=== PATIENT | male | born 1960 | race Caucasian/White ===

== ENCOUNTER 2019-07-31 12:55 | Emergency (ER) | payer BC ==
[2019-07-31] MEDS ORDERED: NA CHLORIDE 0.9% 1,000 ML ONE (13:49)
[2019-07-31 15:06] LABS: Absolute Lymphocytes (CBC) 1.3 K/uL (0.7-4.9); Basophils % 0.4 % (0-1.3); Hematocrit 52.2 % (39.6-49.0); Lymphocytes % 22.9 % (15.3-44.8); MPV 8.4 fL (7.6-11.3)
[2019-07-31 15:21] LABS: ALT/SGPT 27 U/L (12-78); AST/SGOT 14 U/L (15-37); Albumin 3.8 g/dL (3.4-5.0); Alkaline Phosphatase 109 U/L (45-117); BUN Blood Urea Nitrogen 18 mg/dL (7-18); Bicarbonate 29 mmol/L (21-32); Bilirubin Direct 0.2 mg/dL (0-0.2); Bilirubin Total 0.8 mg/dL (0.2-1.0); Glucose Level 96 mg/dL (74-106); Lipase 54 U/L (73-393); Potassium 4.3 mmol/L (3.5-5.1); Protein, Total 7.3 g/dL (6.4-8.2); Sodium Level 137 mmol/L (136-145)
--- NOTE | 2019-07-31 16:09 | RAD REPORT ---
EXAM DESCRIPTION: CT - Abdomen Pelvis W Contrast - 07/31/2019 3:56 pm CLINICAL HISTORY: lower abdomen pain COMPARISON: None. TECHNIQUE: Biphasic, helical CT imaging of the abdomen and pelvis was performed following 100 ml non -ionic IV contrast. No oral contrast administered. All CT scans are performed using dose optimization technique as appropriate and may include automated exposure control or mA/KV adjustment according to patient size. FINDINGS: No suspicious findings in the lung bases. The liver, spleen, and pancreas show no suspicious findings. Cholecystectomy clips are present. No bi liary tree dilatation. Symmetric renal function is seen with no hydronephrosis or suspicious renal mass. No pyelonephritis o r acute parenchymal process. No bladder abnormalities. Small renal cysts are present. No adrenal abno rmality seen. No gastric dilatation or gastric wall thickening. No dilated large or small bowel. Appendix is normal . Sigmoid colon anastomotic site shows no acute finding. Scattered diverticulosis without diverticuli tis. No free air, free fluid or inflammatory stranding. Fat filled left inguinal hernia is present. No congestion or edema of the herniated fat. No acute bone finding. No acute vascular finding suspec remigio. There is extensive postsurgical change near the thoracolumbar junction. IMPRESSION: Contrast enhanced CT abdomen and pelvis showing no acute finding. Nonacute findings detailed in the body of the report.
--- NOTE | 2019-07-31 16:39 | ER ---
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 hb Hx of diverticulitis. Transition of care: patient was not received from another setting of care. Onset of symptoms was July 31, 2019. Risk Assessment: Do you want to hurt yourself or someone else? Patient reports no desire to harm self or others. Initial Sepsis Screen: Does the patient meet any 2 criteria? No. Patient's initial sepsis screen is negative. Does the patient have a suspected source of infection? No. Patient's initial sepsis screen is negative. Care prior to arrival: None. 13:02 Method Of Arrival: Ambulatory hb 13:02 Acuity: JOSE ANTONIO 3 hb Historical: - Allergies: 13:03 No Known Allergies; hb - Home Meds: 13:03 Adderall XR Oral [Active]; hb - PMHx: 13:03 Diverticulitis; hb - PSHx: 13:04 colon resection; back; hb - Immunization history:: Adult Immunizations up to date. - Social history:: Smoking status: Patient/guardian denies using tobacco. - Ebola Screening: : No symptoms or risks identified at this time. Screenin:00 Abuse screen: Denies threats or abuse. Denies injuries from another. Nutritional jl7 screening: No deficits noted. Tuberculosis screening: No symptoms or risk factors identified. Fall Risk IV access (20 points). Total Lucio Fall Scale indicates No Risk (0-24 pts). Assessment: 13:30 General: Appears in no apparent distress. uncomfortable, Behavior is calm, cooperative, jl7 appropriate for age. Pain: Denies pain. Neuro: Level of Consciousness is awake, alert, obeys commands, Oriented to person, place, time, situation. Cardiovascular: Patient's skin is warm and dry. Respiratory: Airway is patent Respiratory effort is even, unlabored, Respiratory pattern is regular, symmetrical. GI: Bowel sounds present X 4 quads. Abd is soft X 4 quads Abdomen is tender to palpation in right upper quadrant Reports rectal bleeding. : No signs and/or symptoms were reported regarding the genitourinary system. EENT: No signs and/or symptoms were reported regarding the EENT system. Derm: Skin is pink, warm \\T\\ dry. 14:30 Reassessment: Pt states "I know what it is and I really don't want a CT. I normally jl7 just call my doctor and he'll call my prescriptions in. Can y' all just do that for me?" Explained to pt that we have to verify what's going on with test, especially with having rectal bleeding. Pt verbalized understanding. 15:30 Reassessment: Patient appears in no apparent distress at this time. No changes from jl7 previously documented assessment. Patient and/or family updated on plan of care and expected duration. Pain level reassessed. Patient is alert, oriented x 3, equal unlabored respirations, skin warm/dry/pink. 16:30 Reassessment: Patient appears in no apparent distress at this time. Patient and/or jl7 family updated on plan of care and expected duration. Pain level reassessed. Patient is alert, oriented x 3, equal unlabored respirations, skin warm/dry/pink. 17:35 Reassessment: Pt was going to leave AMA after antibiotics but once his IV was dc'd and jl7 he was about to leave he had a bloody BM and decided he would rather stay for observation. ERP notified. 18:00 Reassessment: Pt reporting nausea, see MAR for orders. jl7 19:15 Reassessment: Patient appears in no apparent distress at this time. Patient and/or cc3 family updated on plan of care and expected duration. Pain level reassessed. Patient is alert, oriented x 3, equal unlabored respirations, skin warm/dry/pink. Received this male patient from morning shift AFSANEH Hill as a case of abdominal pain with IV cannula gauge 20 at the left ACV with ongoing IVF of NS at 100 mL/hr infusing well. Patient denies pain at this time. Patient states feeling better. Patient states symptoms have improved. General: Appears in no apparent distress. comfortable, Behavior is calm, cooperative, appropriate for age. Pain: Denies pain. Neuro: Level of Consciousness is awake, alert, obeys commands, Oriented to person, place, time, situation, Appropriate for age. Cardiovascular: Denies chest pain, Capillary refill < 3 seconds Patient's skin is warm and dry. Respiratory: Airway is patent Respiratory effort is even, unlabored, Respiratory pattern is regular, symmetrical. GI: Abdomen is round obese, Bowel sounds present X 4 quads. Abd is soft Abdomen is tender to palpation in right upper quadrant. : No signs and/or symptoms were reported regarding the genitourinary system. EENT: No signs and/or symptoms were reported regarding the EENT system. Derm: Skin is intact, is healthy with good turgor, Skin is pink, warm \\T\\ dry. normal. Musculoskeletal: Circulation, motion, and sensation intact. Range of motion: intact in all extremities. 19:25 Reassessment: Patient appears in no apparent distress at this time. Patient and/or cc3 family updated on plan of care and expected duration. Pain level reassessed. Patient is alert, oriented x 3, equal unlabored respirations, skin warm/dry/pink. PA Page discharged the patient home and said no need for the type and screen to be done. IV cannula removed and patient left ER vitally stable and ambulatory. No valuables left in the patient's room. Patient denies pain at this time. Patient states feeling better. Patient states symptoms have improved. Vital Signs: 13:04 BP 169 / 92; Pulse 88; Resp 16; Temp 97.5; Pulse Ox 100% on R/A; Weight 117.93 kg; hb Height 5 ft. 6 in. (167.64 cm); Pain 2/10; 16:11 BP 139 / 81; Pulse 80; Resp 16; Pulse Ox 97% ; jl7 17:00 BP 142 / 89; Pulse 81; Resp 16 S; Pulse Ox 95% on R/A; jl7 18:29 BP 142 / 88; Pulse 83; Resp 16 S; Pulse Ox 96% on R/A; jl7 19:15 BP 148 / 89; Pulse 85; Resp 16 S; Temp 97.8(O); Pulse Ox 96% on R/A; Pain 1/10; cc3 13:04 Body Mass Index 41.96 (117.93 kg, 167.64 cm) hb ED Course: 13:00 Patient arrived in ED. am2 13:02 Triage completed. hb 13:04 Arm band placed on. hb 13:06 Sergio Spangler RN is Primary Nurse. jl7 13:10 Sid Smith PA is PHCP. cp 13:10 Eben Cummins MD is Attending Physician. cp 14:15 Missed attempt(s): 20 gauge in right antecubital area. Bleeding controlled, band aid mb4 applied, catheter tip intact. 14:20 Missed attempt(s): 22 gauge in left forearm. Bleeding controlled, band aid applied, mb4 catheter tip intact. 14:23 Missed attempt(s): 24 gauge in right hand. Bleeding controlled, band aid applied, mb4 catheter tip intact. 14:30 Missed attempt(s): 22 gauge in left wrist. Bleeding controlled, band aid applied, jl7 catheter tip intact. 14:35 Missed attempt(s): 22 gauge in left forearm. jl7 14:45 Inserted saline lock: 20 gauge in left antecubital area, using aseptic technique. Blood sv collected. Flushed left antecubital with 5 ml normal saline. 14:59 Radiology exam delayed due to lab results not completed at this time. (BUN/Creatinine). jg6 15:00 Patient has correct armband on for positive identification. Placed in gown. Bed in low jl7 position. Call light in reach. Side rails up X 1. Pulse ox on. NIBP on. 17:36 No provider procedures requiring assistance completed. IV discontinued, intact, jl7 bleeding controlled, No redness/swelling at site. Pressure dressing applied. 18:20 Inserted saline lock: 20 gauge in left antecubital area, using aseptic technique. jl7 ,using aseptic technique. Inserted by AFSANEH Torres Blood collected. 19:13 Emir Shahid MD is Referral Physician. cp Administered Medications: 14:54 Drug: NS 0.9% 500 ml Route: IV; Rate: bolus; Site: left antecubital; jl7 15:30 Follow up: IV Status: Completed infusion; IV Intake: 500ml jl7 14:54 Drug: NS 0.9% 1000 ml Route: IV; Rate: 100 ml/hr; Site: left antecubital; jl7 17:35 Follow up: IV Status: Completed infusion jl7 16:50 Drug: metroNIDAZOLE 500 mg Volume: 100 ml; Route: IVPB; Infused Over: 30 mins; Site: [facility] left antecubital; 17:35 Follow up: Response: No adverse reaction; IV Status: Completed infusion jl7 17:14 Drug: Cipro 500 mg Route: PO; jl7 17:34 Follow up: Response: No adverse reaction jl7 18:27 Drug: Phenergan 25 mg Route: IVP; Site: left antecubital; jl7 19:15 Follow up: Response: No adverse reaction; Nausea is decreased cc3 Intake: 15:30 IV: 500ml; Total: 500ml. 7 Outcome: 19:14 Discharge ordered by MD. cp 19:25 Discharged to home ambulatory. cc3 19:25 Condition: stable 19:25 Discharge instructions given to patient, Instructed on discharge instructions, follow up and referral plans. medication usage, Demonstrated understanding of instructions, follow-up care, medications, Prescriptions given X 3. 19:26 Patient left the ED. cc3 Signatures: Melissa Baker RN RN Sid Smith PA PA cp Baxter, Heather, RN RN Sergio Spangler RN RN jl7 Chiara La Mackenzie mb4 Soledad Sánchez cc3 Svitlana Galvan jg6
--- NOTE | 2019-07-31 16:40 | EDPHYS ---
Physician Documentation [facility] Name: Kulwant Cervantes Jr Age: 58 yrs Sex: Male : 1960 Arrival Date: 07/31/2019 Time: 13:00 Bed 20 Private MD: ED Physician Eben Cummins HPI: 07/31 13:35 This 58 yrs old Male presents to ER via Ambulatory with complaints of cp Abdominal Pain. 13:35 The patient presents with abdominal pain in the lower abdomen. cp 13:35 Onset: The symptoms/episode began/occurred this morning. Associated signs and symptoms: cp Pertinent positives: blood in stools, nausea. The patient has experienced similar episodes in the past, several times, today's symptoms are similar, to when the patient was apparently diagnosed with diverticulitis. Historical: - Allergies: 13:03 No Known Allergies; hb - Home Meds: 13:03 Adderall XR Oral [Active]; hb - PMHx: 13:03 Diverticulitis; hb - PSHx: 13:04 colon resection; back; hb - Immunization history:: Adult Immunizations up to date. - Social history:: Smoking status: Patient/guardian denies using tobacco. - Ebola Screening: : No symptoms or risks identified at this time. ROS: 13:40 Constitutional: Negative for body aches, chills, fever, poor PO intake. cp 13:40 Eyes: Negative for injury, pain, redness, and discharge. cp 13:40 ENT: Negative for drainage from ear(s), ear pain, sore throat, difficulty swallowing, difficulty handling secretions. 13:40 Cardiovascular: Negative for chest pain, palpitations. 13:40 Respiratory: Negative for cough, shortness of breath, wheezing. 13:40 Abdomen/GI: Positive for abdominal pain, nausea, rectal bleeding, Negative for diarrhea, constipation. 13:40 Back: Negative for radiated pain. 13:40 Neuro: Negative for altered mental status, headache, syncope, weakness. 13:40 All other systems are negative. Exam: 13:50 Constitutional: The patient appears in no acute distress, alert, awake, cp non-diaphoretic, non-toxic, well developed, well nourished, obese. 13:50 Head/Face: Normocephalic, atraumatic. cp 13:50 Eyes: Periorbital structures: appear normal, Conjunctiva: normal, no exudate, no injection, Sclera: no appreciated abnormality, Lids and lashes: appear normal, bilaterally. 13:50 ENT: External ear(s): are unremarkable, Nose: is normal, Mouth: is normal, Posterior pharynx: is normal, airway is patent, no erythema, no exudate. 13:50 Neck: ROM/movement: is normal, is supple, without pain, no range of motions limitations, no nuchal rigidity. 13:50 Chest/axilla: Inspection: normal, Palpation: is normal, no crepitus, no tenderness. 13:50 Cardiovascular: Rate: normal, Rhythm: regular. 13:50 Respiratory: the patient does not display signs of respiratory distress, Respirations: normal, no use of accessory muscles, no retractions, no splinting, no tachypnea, Breath sounds: are clear throughout, no decreased breath sounds, no stridor, no wheezing. 13:50 Abdomen/GI: Inspection: obese scar(s), Bowel sounds: active, all quadrants, Palpation: soft, in all quadrants, mild abdominal tenderness, in the right lower quadrant and left lower quadrant, rebound tenderness, is not appreciated, involuntary guarding, is not appreciated. 13:50 Back: pain, is absent, ROM is normal. 13:50 Neuro: Orientation: to person, place \T\ time. Mentation: is normal, Cerebellar function: is grossly normal, Motor: moves all fours, strength is normal, Sensation: is normal. Vital Signs: 13:04 BP 169 / 92; Pulse 88; Resp 16; Temp 97.5; Pulse Ox 100% on R/A; Weight 117.93 kg; hb Height 5 ft. 6 in. (167.64 cm); Pain 2/10; 16:11 BP 139 / 81; Pulse 80; Resp 16; Pulse Ox 97% ; jl7 17:00 BP 142 / 89; Pulse 81; Resp 16 S; Pulse Ox 95% on R/A; jl7 18:29 BP 142 / 88; Pulse 83; Resp 16 S; Pulse Ox 96% on R/A; jl7 19:15 BP 148 / 89; Pulse 85; Resp 16 S; Temp 97.8(O); Pulse Ox 96% on R/A; Pain 1/10; cc3 13:04 Body Mass Index 41.96 (117.93 kg, 167.64 cm) hb MDM: 13:16 Patient medically screened. 16:28 Data reviewed: vital signs, nurses notes, lab test result(s), radiologic studies, CT cp scan. 16:28 Refusal of service: The patient/guardian displays adequate decision making capability cp and despite a detailed discussion of alternatives, benefits, risks, and consequences refuses: Admission to the hospital for further work-up and treatment. 17:59 Physician consultation: Teri Arias MD was called at 17:55, was contacted at 17:55, regarding admission, to the telemetry unit. patient's condition. 07/31 13:31 Order name: Basic Metabolic Panel 07/31 13:31 Order name: CBC with Diff 07/31 13:31 Order name: Creatinine for Radiology 07/31 13:31 Order name: Hepatic Function 07/31 13:31 Order name: Lipase 07/31 13:31 Order name: PT-INR 07/31 15:07 Order name: Protime (+INR); Complete Time: 15:29 EDKS 07/31 15:08 Order name: CBC with Automated Diff; Complete Time: 15:29 EDKS 07/31 15:30 Interpretation: Normal except: RBC 6.30; HCT 52.2; MCH 26.7; RDW 17.3. 07/31 15:27 Order name: Basic Metabolic Panel; Complete Time: 15:29 EDKS 07/31 15:27 Order name: Liver (Hepatic) Function; Complete Time: 15:29 EDKS 07/31 15:27 Order name: Lipase; Complete Time: 15:29 EDKS 07/31 15:35 Order name: Creatinine (Radiology Only); Complete Time: 17:47 EDKS 07/31 18:07 Order name: Hemoglobin 07/31 13:31 Order name: IV Saline Lock; Complete Time: 14:54 07/31 13:31 Order name: Labs collected and sent; Complete Time: 14:53 07/31 13:32 Order name: CT Abd/Pelvis - IV Contrast Only 07/31 18:07 Order name: Hematocrit 07/31 18:55 Order name: Hemoglobin; Complete Time: 19:04 EDKS 07/31 18:55 Order name: Hematocrit; Complete Time: 19:04 EDMS 07/31 19:08 Interpretation: HCT 49.2; Reviewed. cp 07/31 19:18 Order name: CT [facility] Administered Medications: 14:54 Drug: NS 0.9% 500 ml Route: IV; Rate: bolus; Site: left antecubital; jl7 15:30 Follow up: IV Status: Completed infusion; IV Intake: 500ml [facility] 14:54 Drug: NS 0.9% 1000 ml Route: IV; Rate: 100 ml/hr; Site: left antecubital; jl7 17:35 Follow up: IV Status: Completed infusion jl7 16:50 Drug: metroNIDAZOLE 500 mg Volume: 100 ml; Route: IVPB; Infused Over: 30 mins; Site: 7 left antecubital; 17:35 Follow up: Response: No adverse reaction; IV Status: Completed infusion jl7 17:14 Drug: Cipro 500 mg Route: PO; jl7 17:34 Follow up: Response: No adverse reaction [facility] 18:27 Drug: Phenergan 25 mg Route: IVP; Site: left antecubital; 7 19:15 Follow up: Response: No adverse reaction; Nausea is decreased cc3 Disposition: 08/01 08:05 Co-signature as Attending Physician, Eben Cummins MD I agree with the assessment and kdr plan of care. Disposition: 07/31/19 19:14 Discharged to Home. 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 - Condition is Stable. - Discharge Instructions: Diverticulosis, Gastrointestinal Bleeding. - Prescriptions for Cipro 500 mg Oral Tablet - take 1 tablet by ORAL route every 12 hours for 7 days; 14 tablet. Metronidazole 500 mg Oral Tablet - take 1 tablet by ORAL route every 8 hours; 30 tablet. promethazine 25 mg Oral Tablet - take 1 tablet by ORAL route every 6 hours As needed; 20 tablet. - Medication Reconciliation Form, Thank You Letter, Antibiotic Education, Prescription Opioid Use form. - Follow up: Emir Shahid MD; When: 08/04/2019; Reason: Recheck today's complaints, in office at 0900. - Problem is new. - Symptoms have improved. Signatures: Dispatcher [employer] [facility] Eben Cummins MD MD kdr Sid Smith PA PA Zeina Mckeon RN RN Sergio Spangler RN RN jl7 Soledad Sánchez cc3 Corrections: (The following items were deleted from the chart) 07/31 17:58 16:36 07/31/2019 16:36 Patients has left against medical advice. 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 Patient states they are going to Home. Condition is Stable. Follow up: Private Physician; When: 1 - 2 days; Reason: Recheck today's complaints. Problem is new. Symptoms are unchanged. cp 19:26 19:14 07/31/2019 19:14 Discharged to Home. Impression: Diverticular disease of cc3 intestine, part unspecified, without perforation or abscess; Gastrointestinal hemorrhage, unspecified. Condition is Stable. Prescriptions for Cipro 500 mg Oral Tablet - take 1 tablet by ORAL route every 12 hours for 10 days; 20 tablet, Metronidazole 500 mg Oral Tablet - take 1 tablet by ORAL route every 8 hours; 30 tablet, promethazine 25 mg Oral Tablet - take 1 tablet by ORAL route every 6 hours As needed; 20 tablet. and Forms are Medication Reconciliation Form, Thank You Letter, Antibiotic Education, Prescription Opioid Use. Follow up: Emir Shahid; When: 08/04/2019; Reason: Recheck today's complaints, in office at 0900. Problem is new. Symptoms have improved. cp
[2019-07-31] MEDS ORDERED: METRONIDAZOLE 500mg IVPB 500 MG/100 ML BAG IV ONE (16:50)
[2019-07-31] MEDS ORDERED: CIPROFLOXACIN HCL 500 MG TAB ONE (16:50)
[2019-07-31] MEDS ORDERED: PROMETHAZINE 25 MG/ML VIAL ONE (18:26)
[2019-07-31 18:48] LABS: Hematocrit 49.2 % (39.6-49.0)
[2019-07-31 19:44] VITALS: TEMP 97.5
[2019-07-31 19:49] VITALS: BP 142/88; O2SAT 96
== END 2019-07-31 19:26 | disposition home or self-care (01) ==
LOC: ER 12:55
DX: K57.90 Diverticulosis of intestine, part unspecified, without perforation or abscess without bleeding (principal); K92.2 Gastrointestinal hemorrhage, unspecified
CPT/HCPCS: 96365; 96361; 85025; 80048; 36415; 85610; 80076; 85018; 85014; 83690; 74177; 96375; 99284; Q9967; J2550; J7030